=== PATIENT | female | born 1985 | race Caucasian/White ===

== ENCOUNTER → 2019-11-05 | Outpatient (CLI) | payer BC ==
--- NOTE | 2019-11-05 16:36 | RADIOLOGY REPORT (SQ) ---
EXAM DESCRIPTION: HYSTERO CATH/INJECTION; HYSTEROSALPINGOGRAM COMPLETED DATE/TIME: 11/05/2019 4:13 pm; 11/05/2019 4:14 pm REASON FOR STUDY: INFERTILITY COMPARISON: None. PROCEDURE: PRE-PROCEDURE: Procedure was explained to the patient. She was told to expect cramping du ring the procedure, and possible spotting post procedure. PROCEDURE: The cervix was prepped in sterile fashion. Under direct visual inspection, the cervix was cannulated with the hysterosalpingogram catheter and contrast injected. TECHNIQUE: Temporal fluoroscopic images acquired during the procedure stored to PACS. FLUOROSCOPY TIME: 58 seconds. 15 images saved to PACS. LIMITATIONS: None. FINDINGS: UTERUS: No identified anomalies. No synechia. RIGHT ADNEXA: Normal size fallopian tube. Free spill of contrast into the peritoneal cavity. LEFT ADNEXA: Normal size fallopian tube. Free spill of contrast into the peritoneal cavity. POST PROCEDURE: The patient tolerated the procedure with no adverse effects. IMPRESSION: NORMAL HYSTEROSALPINGOGRAM. COMMENT: Study performed by and interpreted by the radiologist. Quality ID 145: Final reports for procedures using fluoroscopy that document radiation exposure sally gary, or exposure time and number of fluorographic images (if radiation exposure indices are not avail able) TECHNICAL DOCUMENTATION: JOB ID: [id number] 2010 [employer]- All Rights Reserved Reading location - IP/workstation name: [email or web address]
--- NOTE | 2019-11-05 16:36 | RADIOLOGY REPORT (SQ) ---
EXAM DESCRIPTION: HYSTERO CATH/INJECTION; HYSTEROSALPINGOGRAM COMPLETED DATE/TIME: 11/05/2019 4:13 pm; 11/05/2019 4:14 pm REASON FOR STUDY: INFERTILITY COMPARISON: None. PROCEDURE: PRE-PROCEDURE: Procedure was explained to the patient. She was told to expect cramping du ring the procedure, and possible spotting post procedure. PROCEDURE: The cervix was prepped in sterile fashion. Under direct visual inspection, the cervix was cannulated with the hysterosalpingogram catheter and contrast injected. TECHNIQUE: Temporal fluoroscopic images acquired during the procedure stored to PACS. FLUOROSCOPY TIME: 58 seconds. 15 images saved to PACS. LIMITATIONS: None. FINDINGS: UTERUS: No identified anomalies. No synechia. RIGHT ADNEXA: Normal size fallopian tube. Free spill of contrast into the peritoneal cavity. LEFT ADNEXA: Normal size fallopian tube. Free spill of contrast into the peritoneal cavity. POST PROCEDURE: The patient tolerated the procedure with no adverse effects. IMPRESSION: NORMAL HYSTEROSALPINGOGRAM. COMMENT: Study performed by and interpreted by the radiologist. Quality ID 145: Final reports for procedures using fluoroscopy that document radiation exposure sally gary, or exposure time and number of fluorographic images (if radiation exposure indices are not avail able) TECHNICAL DOCUMENTATION: JOB ID: [id number] 2010 [employer]- All Rights Reserved Reading location - IP/workstation name: [email or web address]
== END ==
LOC: RAD 14:47
PROVIDERS: ATTEND Specialist
DX: N97.9 Female infertility, unspecified (principal)
CPT/HCPCS: 58340; 74740